=== PATIENT | female | born 1980 ===

== ENCOUNTER → 2024-01-25 | Outpatient (CLI) | payer MEDICAID | LOC: COL.RAD 10:13 | DX: M19.072 Primary osteoarthritis, left ankle and foot (principal) ==

== ENCOUNTER → 2024-02-25 | Outpatient (CLI) | payer MEDICAID | LOC: COL.RAD 13:56 | DX: M25.561 Pain in right knee (principal) ==

== ENCOUNTER → 2024-06-15 | Outpatient (CLI) | payer MEDICAID | LOC: COL.RAD 08:40 | DX: D25.9 Leiomyoma of uterus, unspecified (principal); K76.0 Fatty (change of) liver, not elsewhere classified; N94.10 Unspecified dyspareunia ==